=== PATIENT | female | born 1975 | race Two or more races ===

== ENCOUNTER 2018-08-18 07:26 | Emergency (ER) | payer BC ==
[~2018-08-18] VITALS: Ht 167.6 cm; Wt 115.7 kg
[2018-08-18 07:34] VITALS: BP 136/72
[2018-08-18] MEDS ORDERED: KETOROLAC TROMETH 60MG/2ML VIAL IM ONE (08:15)
== END 2018-08-18 10:13 | disposition home or self-care (01) ==
LOC: ER 07:26
DX: M75.92 Shoulder lesion, unspecified, left shoulder (principal)
CPT/HCPCS: 73030; 96372; 99283; J1885